=== PATIENT | male | born 1995 | race African-American/Black ===

== ENCOUNTER 2020-02-19 19:22 | Emergency (ER) | payer OTHER ==
[~2020-02-19] VITALS: Ht 180.3 cm; Wt 59.0 kg
[2020-02-19] MEDS ORDERED: BACTRIM DS TAB1 EACH PO (20:44)
[2020-02-19] MEDS ORDERED: NORCO 5-325 TA1 EAC2 PO (20:44)
[2020-02-19] MEDS ORDERED: KEFLEX500 M1 PO (20:46)
[2020-02-19 21:07] VITALS: BP 100/60
== END 2020-02-19 21:07 | disposition home or self-care (01) ==
LOC: ER 19:22
DX: S40.861A Insect bite (nonvenomous) of right upper arm, initial encounter (principal); W57.XXXA Bitten or stung by nonvenomous insect and other nonvenomous arthropods, initial encounter; Y93.89 Activity, other specified; Y92.89 Other specified places as the place of occurrence of the external cause; Y99.8 Other external cause status